=== PATIENT | female | born 2000 | race Caucasian/White ===

== ENCOUNTER 2019-09-05 11:43 | Day surgery (SDC) | payer OTHER ==
[~2019-09-05 11:43] MED LIST: Buffered Lidocaine 1% SYRIN* 1 ML/SYRINGE INTRADERM ONE; Dexamethasone IV* 4 MG/ML 1 ML (4 MG) IV SLOW PU ONE; Famotidine IV* 10 MG/ML 2 ML (20 mg) IV ONE; Lactated Ringers 1000 ML Bag* 1,000 ML IV SCH
[2019-09-05] MEDS ORDERED: ROPIVACAINE 5 MG/ML 30 ML BTL (0.5%) ONE (12:56)
[2019-09-05] MEDS ORDERED: Propofol* 10 MG/ML 20 ML BTL ONE (12:57)
[2019-09-05] MEDS ORDERED: fentaNYL* 50 MCG/ML 2 ML VIAL (100 MCG VIAL) ONE (12:57)
[2019-09-05] MEDS ORDERED: Succinylcholine* 20 MG/ML 10 ML VIAL ONE (12:57)
[2019-09-05] MEDS ORDERED: Midazolam* 1 MG/ML 5 ML VIAL (5 MG) ONE (12:57)
[2019-09-05] MEDS ORDERED: Lidocaine 2% PF * 5 ML VIAL ONE (12:57)
[2019-09-05] MEDS ORDERED: HYDROcodone/ACETAMIN 5-325 MG* 1 TAB PO PRN (13:19)
[2019-09-05] MEDS ORDERED: DiMENhydriNATE IV* 50 MG/ML VIAL IV PUSH PRN (13:19)
[2019-09-05] MEDS ORDERED: Naloxone* 0.4 MG/ML 1 ML VIAL IV PRN (13:19)
[2019-09-05] MEDS ORDERED: oxyCODONE/Acetamin 5/325 MG* TAB PO PRN (13:19)
[2019-09-05] MEDS ORDERED: fentaNYL* 50 MCG/ML 2 ML VIAL (100 MCG VIAL) IV PRN (13:19)
[2019-09-05] MEDS ORDERED: Dexamethasone IV* 4 MG/ML 1 ML (4 MG) ONE (13:43)
[2019-09-05] MEDS ORDERED: Buffered Lidocaine 1% SYRIN* 1 ML/SYRINGE INTRADERM ONE ×2 (13:44→14:10)
[2019-09-05] MEDS ORDERED: Famotidine IV* 10 MG/ML 2 ML (20 mg) ONE (13:44)
[2019-09-05] MEDS ORDERED: Ondansetron INJ* 2 MG/ML VIAL ONE (14:22)
[2019-09-05 17:34] VITALS: BP 111/63
--- NOTE | 2019-09-05 20:38 | OP ---
OPERATIVE REPORT: DATE OF OPERATION: 09/05/19 - SDS DATE OF : 99 SURGEON: Shawn Pérez MD CONTACT CENTER ASSOCIATE: None. ANESTHESIOLOGIST: Joshua Urbina MD ANESTHESIA: General. PRE-OP DIAGNOSIS: Chronic tonsillitis. POST-OP DIAGNOSIS: Chronic tonsillitis. OPERATIVE PROCEDURE: Tonsillectomy. ESTIMATED BLOOD LOSS: Negligible. SPECIMENS: Right and left tonsils to Pathology. DESCRIPTION OF PROCEDURE: The patient was brought to the operating room. General anesthesia was induced and an oral endotracheal tube was placed. The table was turned. The patient was draped. A time-out was performed. A McIvor mouth gag was used to facilitate exposure of the oropharynx and suspended from the Krause stand. The right tonsil was grasped first. It was retracted medially and dissected free of its fossa with the coblation device at a setting of 7 and 3. There was no bleeding. The left tonsil was removed in an identical fashion , again with no bleeding. The superior and inferior pole regions of the tonsils were then prophylactically cauterized with the bipolar setting turned up to 5. The mouth gag was then let down for a period of a minute. It was then opened. There was no evidence of active bleeding. An orogastric tube was passed into the stomach and the stomach contents were evacuated. The patient was then returned to the care of the anesthesiologist, extubated and delivered to the PACU in stable condition. [id number] #: [id number] MTDD
== END 2019-09-05 16:50 | disposition home or self-care (01) ==
LOC: OR 11:43
PROVIDERS: ATTEND Otolaryngology
DX: J35.01 Chronic tonsillitis (principal); F90.9 Attention-deficit hyperactivity disorder, unspecified type
CPT/HCPCS: 81025; 88304; J0330; J1100; J2250; J2405; J2704; J2795; J3010